=== PATIENT | male | born 1995 | race Caucasian/White ===

== ENCOUNTER 2020-01-12 07:12 | Inpatient (IN) | payer OTHER ==
[~2020-01-12] VITALS: Ht 160 cm; Wt 86.2 kg
[2020-01-12] VITALS (13 sets, daily range): BP systolic 112–153; BP diastolic 56–86
[2020-01-12] MEDS ORDERED: NOHOMEMEDICATIONS (07:38)
[2020-01-12 08:03] LABS: HEMATOCRIT 45.2 % (42.0-52.0); MCH 30.5 pg (26.0-34.0); MCHC 33.2 g/dL (28.0-37.0); MCV 91.7 fL (80.0-100.0); PLATELET COUNT 398 thou/uL (150-400); RBC 4.93 mil/uL (4.50-6.00); WBC 36.1 thou/uL (4.0-11.0)
[2020-01-12 08:14] LABS: CREATININE 0.8 mg/dL (0.7-1.3); POTASSIUM 3.7 mmol/L (3.5-5.1)
[2020-01-12 08:15] LABS: MAGNESIUM 1.8 mg/dL (1.8-2.4)
[2020-01-12 08:54] LABS: ABSOLUTE NEUTROPHILS 31.8 thou/uL (1.4-8.2)
--- NOTE | 2020-01-12 10:01 | EKG ---
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
--- NOTE | 2020-01-12 11:17 | NUR ---
MRI SCREENING SHEET FAXED TO # [id number]
--- NOTE | 2020-01-12 15:03 | 2DMMODE ---
[facility] [place] [address] 2 D/M-MODE ECHOCARDIOGRAM Name: JOSE PRINCE Room #: REG PANTERA VazquezYamila#: [id number] Admission: 01/12/20 Attend Phys: Discharge: Date of : 95 Report #: [id number] THIS REPORT FOR: cc: FAM - No family physician/PCP FAM - No family physician/PCP Darian Rose MD [facility] ~ APPROVED REPORT Study performed: 01/12/2020 14:31:23 EXAM: Limited 2D, Doppler, and color-flow Echocardiogram Patient Location: ER-7 Status: HANANE BSA: 1.81 BP: 126/63 mmHg Rhythm: NSR/TACHYCARDIA Other Information Study Quality: Good/Patient in distress. Not all measurements taken. Indications Epidural abscess. IV drug abuse. Infection, Rule out endocarditis. Aortic Valve AoV Peak Enoc.: 1.96 m/s AO Peak Gr.: 15.31 mmHg Mitral Valve E/A Ratio: 1.3 MV Decel. Time: 90.79 ms MV E Max Enoc.: 1.17 m/s MV A Enoc.: 0.93 m/s MV PHT: 26.33 ms Pulmonary Valve PV Peak Enoc.: 1.68 m/s PV Peak Gr.: 11.26 mmHg Tricuspid Valve TR Peak Enoc.: 3.00 m/s RAP Estimate: 5.00 mmHg TR Peak Gr.: 36.00 mmHg [facility] [address] [place] [address] 2 D/M-MODE ECHOCARDIOGRAM Name: JOSE PRINCE Room #: REG PANTERA Meredith#: [id number] Admission: 01/12/20 Attend Phys: Discharge: Date of : 95 Report #: [id number] Pressure: 41.00 mmHg Left Ventricle The left ventricle is normal size. There is normal LV segmental wall motion. There is normal left ventricular wall thickness. Left ventricular systolic function is normal. LVEF is 60-65%. Right Ventricle The right ventricle is normal size. The right ventricular systolic function is normal. Atria The left atrium size is normal. The right atrium size is normal. Aortic Valve The aortic valve is normal in structure. No aortic regurgitation is present. There is no aortic valvular stenosis. Mitral Valve The mitral valve is normal in structure. There is no mitral valve regurgitation noted. No evidence of mitral valve stenosis. Tricuspid Valve The tricuspid valve is normal in structure. Trace tricuspid regurgitation. Estimated PAP is 40-45mmHg. Pulmonic Valve The pulmonary valve is normal in structure. Trace pulmonic regurgitation. Great Vessels The aortic root is normal in size. IVC is normal in size and collapses >50% with inspiration. Pericardium There is no pericardial effusion. <Conclusion> Left ventricular systolic function is normal. There is normal LV segmental wall motion. LVEF is 60-65%. The aortic valve is normal in structure. No aortic regurgitation or stenosis The mitral valve is normal in structure. No mitral valve regurgitation. [facility] [address] [place] [address] 2 D/M-MODE ECHOCARDIOGRAM Name: JOSE PRINCE [facility] [id number] Admission: 01/12/20 Attend Phys: Discharge: Date of : 95 Report #: [id number] Trace tricuspid regurgitation. Estimated pulmonary artery pressure of 40-45mmHg. There is no pericardial effusion. <ELECTRONICALLY SIGNED> By: Darian Rose MD, FACC 01/12/20 1501 150 00 Darian Rose MD, FACC /INF
[2020-01-12 16:48] LABS: TSH 1.68 uIU/mL (0.358-3.740)
--- NOTE | 2020-01-12 16:50 | NUR ---
THE OR WAS CALLED AND ADVISED THAT THE PT IS A COVID RULE OUT. OR WAS ADVISED THAT THE PT HAS NOT BEEN COVID SWABBED YET. PT WAS TRANSPORTED TO THE OR BY PRE-OP NURSES.
--- NOTE | 2020-01-12 20:30 | NUR ---
ADMIT TO ICU FROM OR POST EVACUATION OF CERICAL EPIDURAL ABSCESS AWAKE AND ALERT. FOLLOWS COMMANDS RIGHT SIDE WEAKER THAN LEFT. LUNGS CLEAR AFEBRILE. NECK DRESSING INTACT WITH PATY DRAING SEROSANGIOUS DRG SINUS TACH. WILL CONT TO MONITOR
--- NOTE | 2020-01-12 21:00 | NUR ---
COVID 19 TEST PERFORMED AND SENT TO LAB.
[2020-01-12 21:26] LABS: URINE BILIRUBIN NEGATIVE (Negative); URINE BLOOD 2+ (Negative); URINE CLARITY TURBID; URINE COLOR YELLOW; URINE GLUCOSE-RANDOM* NEGATIVE (Negative); URINE KETONES NEGATIVE (Negative); URINE LEUKOCYTES-REFLEX NEGATIVE (Negative); URINE NITRITE-REFLEX NEGATIVE (Negative); URINE PROTEIN (DIPSTICK) 1+ (Negative)
[2020-01-12 21:36] LABS: CALCIUM OXALATE 0-3 Few /LPF (None Seen); SQUAMOUS 0-3 Few /LPF (0-3); URINE RBC 3-10 Few /HPF (0-2)
[2020-01-12 21:37] LABS: CASTS None Seen /LPF (None Seen)
[2020-01-12 21:38] LABS: BACTERIA-REFLEX 1-9 Few /HPF (None Seen); URINE WBC-REFLEX None Seen /HPF (0-5)
[2020-01-12 21:41] LABS: CALCIUM 8.3 mg/dL (8.5-10.1); CREATININE 0.7 mg/dL (0.7-1.3)
[2020-01-12 21:46] LABS: POTASSIUM 4.8 mmol/L (3.5-5.1)
[2020-01-13] VITALS (11 sets, daily range): BP systolic 107–133; BP diastolic 49–72
[2020-01-13 02:07] LABS: GLYCOHEMOGLOBIN (HGB A1C) 4.9 % (4.8-5.6)
[2020-01-13 04:36] LABS: CALCIUM 8.3 mg/dL (8.5-10.1); CREATININE 0.8 mg/dL (0.7-1.3); MAGNESIUM 1.9 mg/dL (1.8-2.4); POTASSIUM 4.8 mmol/L (3.5-5.1)
[2020-01-13 05:23] LABS: MCH 30.5 pg (26.0-34.0); MCHC 33.2 g/dL (28.0-37.0); RBC 4.13 mil/uL (4.50-6.00)
[2020-01-13 05:28] LABS: HEMATOCRIT 37.9 % (42.0-52.0); MCV 91.8 fL (80.0-100.0); PLATELET COUNT 394 thou/uL (150-400); RDW 13.9 % (10.5-14.5); WBC 34.5 thou/uL (4.0-11.0)
[2020-01-13 05:33] LABS: HEMOGLOBIN 12.6 gm/dL (14.0-18.0)
--- NOTE | 2020-01-13 06:00 | NUR ---
PT IS TRANSGENDER AND GOES BY THE NAME OF JANINA. REMAINS IN POSSIBLE COVID 19 ISOLATION. WILL CONT TO MONITOR.
--- NOTE | 2020-01-13 06:00 | NUR ---
VSS REMAINS IN SINUS TACH. AWAKE AND ALERT COOPERATIVE.NECK DRESSING INTACT 40 CC DRAINAGE FROM PATY DRAIN. 1500 CC UO THIS SHIFT. AFEBRILE. LUNGS CLEAR. FENTANYL PRN PAIN. S/C FOR MRI. RIGHT SIDE MUCH STRONGER THIS HOUR. Can RAISE up ARMS AND PULL UP LEGS BILAT. WILL CONT TO MONITOR..
[2020-01-13 07:53] LABS: ABSOLUTE NEUTROPHILS 33.1 thou/uL (1.4-8.2); LARGE PLATELETS OCCASIONAL; METAMYELOCYTES 1 %
--- NOTE | 2020-01-13 08:15 | NUR ---
chart review, consult for drug use and lives in hotel. ramirez gave safe net packet to bedside nurse to deliver to pt. ramirez visited with pt who goes by ms kang or jo ann he is transgender male to female. intro to cm, and dcp. she is a & o x 4, pleasant, tearful and able to make her needs know. active listing and support during phone call with jo ann. she reported " lives at [facility] on [address] [place] [facility] [place] [address]. paid 2 weeks at a time and just paid on . have vehicle that used to sleep in but broken down now. before on the streets. lost my job a [employer] in [facility], i was with at my 5mo with job and lost job do to all this. i had relapse. i stopped on my own. i worried about this because i cant care for myself. so might need wheel chair. no hh or rehab of any in the past. education [facility] packet [facility]. no primary md, no insurance. i don't have any friends or family there. have not lived her long. mom is in [facility] # [phone]. thank you all have been so kind"/jo ann. will cont following as needed for dc needs.
[2020-01-13 09:40] LABS: ALBUMIN 2.1 g/dL (3.4-5.0); DIRECT BILIRUBIN < 0.1 mg/dL (<0.1-0.2); SGOT 14 U/L (15-37); SGPT 15 U/L (30-65); TOTAL BILIRUBIN 0.2 mg/dL (<0.1-1.0); TOTAL PROTEIN 6.8 g/dL (6.4-8.2)
--- NOTE | 2020-01-13 18:33 | NUR ---
ASSUMED CARE PT SHIFT CHANGE. ASSESSMENTS CHARTED.MEDS GIVEN PER NOV. PT ALERT AND ORIENTED.VSS. C/O NECK AND LEG PAIN- MANAGED WITH IV PAIN MEDS. O2 SATS WNL ON 1L O2, TITRATED TO ROOM AIR. COVID TEST NEGATIVE- RESULTS COMMUNICATED TO PHYSICIAN-- NO NEW ORDERS. PT DENIES COUGH/SOB. O2 SATS REMAIN WNL. PT WENT FOR MRI THIS SHIFT--REFER TO RESULTS. PT UP X2 ASSIST. PATY DRAIN REMAINS INTACT. ORIGINAL DRESSING ON BACK OF NECK DRY AND INTACT WITH DRIED DRAINAGE. SEROSANGUINOUS OUTPUT EMPTIED AND DOCUMENTED. URINE OUTPUT ADEQUATE. PT SEEN BY NEUROSURGEON THIS SHIFT- REFER TO PHYSICIAN NOTE. PT CONTINUES TO REMAIN MORE WEAK ON RIGHT SIDE THAN LEFT, NEUROSURGEON NOTIFIED, NO ORDERS/CHANGES RECEIVED. PT EMOTIONAL AND TEARFUL AT TIMES, THERAPEUTIC COMMUNICATION AND REASSURANCE ENFORCED. PT CURRENTLY RESTING IN BED DENYING OF NEEDS. WILL CONTINUE TO MONITOR AND FOLLOW POC.
[2020-01-14] VITALS (24 sets, daily range): BP systolic 115–146; BP diastolic 55–106
[2020-01-14 04:10] LABS: HEMATOCRIT 38.1 % (42.0-52.0); HEMOGLOBIN 12.7 gm/dL (14.0-18.0); MCH 30.6 pg (26.0-34.0); MCHC 33.3 g/dL (28.0-37.0); PLATELET COUNT 381 thou/uL (150-400); RBC 4.14 mil/uL (4.50-6.00); RDW 14.1 % (10.5-14.5)
[2020-01-14 04:13] LABS: CALCIUM 8.3 mg/dL (8.5-10.1); CREATININE 0.6 mg/dL (0.7-1.3); POTASSIUM 5.1 mmol/L (3.5-5.1)
[2020-01-14 04:59] LABS: ABSOLUTE NEUTROPHILS 22.8 thou/uL (1.4-8.2); MYELOCYTES 2 %
--- NOTE | 2020-01-14 10:45 | NUR ---
PT ALERT AND ORIENTED TIMES FOUR. PT VERY VERY TEARFUL THIS MORNING. STATES HE IS IN ALOT OF PAIN. FENTANYL GIVEN WITH LITTLE RELEIF. ON UNIT AND ORDERED DILAUDID, LIDOCAINE PATCH AND ATIVAN. ALL MEDS GIVEN WITH GOOD RELEIF PT NOW SLEEPING. VSS. PT DENIES SOAMYAH TO DD. PATY DRAIN TO BULB SUCTION. WILL CONTINUE TO MONITOR.
[2020-01-15] VITALS (22 sets, daily range): BP systolic 118–161; BP diastolic 70–98
[2020-01-15 06:42] LABS: HEMATOCRIT 39.7 % (42.0-52.0); HEMOGLOBIN 13.3 gm/dL (14.0-18.0); MCH 30.7 pg (26.0-34.0); MCHC 33.5 g/dL (28.0-37.0); MCV 91.5 fL (80.0-100.0); PLATELET COUNT 362 thou/uL (150-400); RBC 4.33 mil/uL (4.50-6.00); RDW 13.9 % (10.5-14.5); WBC 24.1 thou/uL (4.0-11.0)
--- NOTE | 2020-01-15 07:11 | NUR ---
Assumed patient care at 1900. Patient very tearful from neck and mid back pain. Patient medicated with PRN pain meds appropriately and patient got some pain relief and rested for a few hours. No acute events occurred during this shift. Patient remained tachycardic throughout this shift.
[2020-01-15 08:39] LABS: CALCIUM 8.8 mg/dL (8.5-10.1); CREATININE 0.6 mg/dL (0.7-1.3); POTASSIUM 4.4 mmol/L (3.5-5.1); TOTAL BILIRUBIN 0.4 mg/dL (<0.1-1.0); TOTAL PROTEIN 6.9 g/dL (6.4-8.2)
[2020-01-15 10:09] LABS: ABSOLUTE NEUTROPHILS 18.8 thou/uL (1.4-8.2)
[2020-01-15 10:11] LABS: TOXIC GRANULATION 2+
--- NOTE | 2020-01-15 14:46 | NUR ---
ASSUMED CARE FOR PT AT 0700. ASSESSMENTS DOCUMENTED. DRESSING ON NECK C/D/I. PT AFEBRILE. NO COMPLAINTS OF SOA/N/V/D. PT REMAINS TEARFUL THROUGHOUT DAY. SLEEPS ON AND OFF. CONTINUES TO BE TACHYCARDIC/TACHYPNEIC. DIMINISHED APPETITE. PT UP TO CHAIR FROM 0730 TO 1445. PT VERY WEAK, NEEDS PT EVAL. PATY TO BULB SUCTION WITH MINIMAL OUTPUT. NEUROLOGICALLY INTACT. PROGRESSING TOWARDS POC EVIDANCE BY NO NEURO DEFICITS. WILL CONTINUE TO MONITOR.
[2020-01-16] VITALS (12 sets, daily range): BP systolic 115–145; BP diastolic 52–83
--- NOTE | 2020-01-16 05:37 | NUR ---
Assumed patient care at 1900. Patient doing much better today than yesterday with only complaints of stiffness vs. complaints of pain yesterday. Patient remained stable throughout this shift and no acute events occurred.
[2020-01-16 06:22] LABS: HEMATOCRIT 45.1 % (42.0-52.0); HEMOGLOBIN 15.1 gm/dL (14.0-18.0); MCH 30.7 pg (26.0-34.0); MCHC 33.5 g/dL (28.0-37.0); MCV 91.5 fL (80.0-100.0); PLATELET COUNT 395 thou/uL (150-400); RBC 4.93 mil/uL (4.50-6.00); RDW 13.7 % (10.5-14.5); WBC 21.5 thou/uL (4.0-11.0)
--- NOTE | 2020-01-16 08:37 | EKG ---
[facility] [place] [address] ELECTROCARDIOGRAM REPORT Name: JOSE PRINCE Room #: 246-P ADM IN M.R.#: [id number] Admission: 01/12/20 Attend Phys: Alejandra Brannon MD Discharge: Date of : 95 Report #: [id number] THIS REPORT FOR: cc: TIMMY - Jennifer family physician/PCP TIMMY - No family physician/PCP Darian Rose MD [facility] THIS REPORT FOR: //name// [facility] Test Date: 2020-01-15 Test Time: 15:44:58 Pat Name: JOSE PRINCE Department: Room: [facility] Gender: M Data Integrity Specialist: Shahrzad GABRIEL : 1995 Requested By: Isiah Hurd Order Number: [id number] MD: Darian Rose Measurements Intervals [place] Rate: 108 P: 69 W[place]: 128 QRS: 42 QRSD: 100 T: -5 QT: 313 QTc: 420 Interpretive Statements Sinus tachycardia ST elev, probable normal early repol pattern Baseline wander in lead(s) V1 Compared to ECG 01/12/2020 08:04:37 No significant change was found Electronically Signed On 01-16-2020 8:35:32 CDT by Darian Rose [email or web address] <ELECTRONICALLY SIGNED> By: Darian Rose MD, FAC 01/16/20 0835 1544 1544 Darian Rose MD, FAC /EPI
[2020-01-16 08:44] LABS: ABSOLUTE NEUTROPHILS 17.4 thou/uL (1.4-8.2); METAMYELOCYTES 1 %; MYELOCYTES 1 %
[2020-01-16 08:45] LABS: ANISOCYTOSIS SLIGHT
[2020-01-16 11:27] LABS: CREATININE 0.9 mg/dL (0.7-1.3); POTASSIUM 4.5 mmol/L (3.5-5.1)
--- NOTE | 2020-01-16 13:25 | NUR ---
ASSUMED CARE FOR PT AT 0700, ASSESSMENTS DOCUMENTED. TRANSFER ORDERS TO MED/SURG/TELE. PHYSICAL THERAPY EVALUATED AND TREATED PT TODAY. UP TO CHAIR. CONTINUES TO HAVE A DIMINISHED APPETITE. ADEQUATE URINE OUTPUT. EMOTIONALLY LABILE. LOWER RIGHT EXTREMITY WEAKNESS. PATY TO BULB SUCTION, MINIMAL OUTPUT. BANDAGE ON POSTERIOR NECK IS C/D/I. PT COMPLAINS OF NECK AND GENERAL BACK PAIN, ANALGESICS AND NON-PHARMACOLOGIC METHEDS USED.PT PROGRESSING TOWARDS PLAN OF CARE EVIDANCE BY ORDERS TO TRANSFER TO [facility]. PT UPDATED AND EDUCATED. WILL CONTINUE TO MONITOR.
--- NOTE | 2020-01-16 15:53 | NUR ---
DARA reviewed chart and spoke with attending physician. Pt with multiple spinal abscesses and continues on IV abx. Neuro surgery is following. Pt may need termite treater helper IV abx. Pt does not currently have insurance. DARA requested [employer] to follow up with pt to determine if pt would be a candidate for Medicaid. DARA is following to assist as needed with discharge planning.
--- NOTE | 2020-01-17 06:00 | NUR ---
PT AWAKE AND ALERT. SLEPT AT INTERVALS TONIGHT. PAIN MEDS PRN FOR NECK INCISION. 2000 CC UO THIS SHIFT. SR TO ST PER MONITOR. LUNGS CLEAR. NECK DRESSING INTACT. 5 CC DRAINAGE FROM PATY DRAIN. S/C FOR MRI TODAY. WILL CONT TO MONITOR.
[2020-01-17 09:29] VITALS: BP 132/67
--- NOTE | 2020-01-17 11:20 | NUR ---
Nutrition: REC daily MVI to be ordered for pt. Assisted with increasing oral intake however pt refusing all supplements.
[2020-01-17 13:21] VITALS: BP 122/73
--- NOTE | 2020-01-17 13:35 | O ---
[facility] [place] [address] OPERATIVE REPORT Name: JOSE PRINCE Room #: 246-P ADM IN M.R.#: [id number] Admission: 01/12/20 Attend Phys: Alejandra Brannon MD Discharge: Date of : 95 Report #: [id number] THIS REPORT FOR: cc: ITMMY - No family physician/PCP TIMMY - Jennifer family physician/PCP Chester Lozano MD ~ CC: Alejandra Fisher [facility] physician/PCP Chester Bynum DATE OF SERVICE: 01/12/2020 PREOPERATIVE DIAGNOSIS: Cervical epidural abscess C2 through C7. POSTOPERATIVE DIAGNOSIS: Cervical epidural abscess C2 through C7. OPERATION PERFORMED: C2-C3 left hemilaminectomy with evacuation of epidural abscess and placement of drain. SURGEON: Chester Lozano M.D. INTERNAL CONTROL CONSULTANT: SYDNIE Reyes, assisted with the exposure of the laminectomy with removal of the abscess and closure. OPERATIVE INDICATIONS: The patient is a pleasant 24-year-old, who presented to the Emergency Room with complaints of upper back and neck pain. The patient reports that he had been in the Emergency Room twice earlier in the week at [facility] with severe pain and nothing was done. He said that he has become much worse over the last 24 hours and feels short of breath. He denied fever or weakness. The patient was evaluated and underwent an MRI scan. After that time, the patient felt he was losing control of upper and lower extremities. When I saw the patient, he had global weakness with 4/5 strength in the upper extremities and 2-3/5 strength in lower extremities. On imaging studies, there was a large epidural abscess anterior to the cord at C2 and C3 and much smaller abscess which continued down the spine to about C7 and I recommended emergent evacuation of the abscess. I did review these films with Dr. Kemar Armenta, the chief neuro surgeon at [facility]. After we discussed this case at length, I elected to perform a left sided laminectomy of C2 and C3 and then go anterior to the cord and evacuate the abscess. DESCRIPTION OF PROCEDURE: The patient was taken emergently into the operating [facility] [address] [place] [address] OPERATIVE REPORT Name: SURESHJOSE Room #: 246-P [facility] IN .R.#: [id number] Admission: 01/12/20 Attend Phys: Alejandra rBannon MD Discharge: Date of : 95 Report #: [id number] room and positioned prone in Leach pins. The posterior cervical region was then clipped, prepped and draped in standard fashion. TAMMY hose and AV impulse boots were applied for DVT prophylaxis. Microscope was draped. Fluoroscopy was draped into the field. Monitoring was established. The patient had been given antibiotics. A midline posterior incision was made and taken down to skin and subcutaneous tissue. I exposed the left side of C2 and C3. I confirmed my position fluoroscopically. I brought in the microscope and the self-retaining retractors. I drilled a generous hemilaminotomy of C2 and C3 and then used 2 mm Kerrisons to enlarge it laterally and medially and visualized the dura. There were considerable veins over the dura which I gently freed and worked around laterally. I could visualize the nerve root takeoff clearly. As I worked, I was able to obtain an excellent exposure. I passed a blunt hook beneath the dura at C2 and C3 and worked. At this point, I did not find an epidural abscess. I did retract gently. I found some organized abscess material which I took and continued exploring. I found that the upper part C2 was pulsating nicely, but the dura at C3 was not. I took a [place] dental gently and explored anteriorly at C2 and then C3 and as I reached anterior across the midline and inferiorly at C3, I suddenly encountered significant amounts of whitish purulent material. Cultures and Gram stain were obtained. I worked and I was able to obtain a significant amount of pus removal of the dura and relaxed nicely. I irrigated copiously and placed a small drain, which I brought out through a separate stab incision and secured this and then I closed the wound in layers with absorbable suture and the skin was closed with skin kitty. The operation went well and the patient was transported back to the Intensive Care Unit under appropriate precautions and I felt the surgery went very well. <ELECTRONICALLY SIGNED> By: Chester Lozano MD 01/17/20 1335 Chester Lozano MD /nt
--- NOTE | 2020-01-17 14:45 | NUR ---
DARA reviewed chart and spoke with attending physician. Pt to have MRI of lumbar spine today. 5N consult ordered to evaluate pt for admission to inpt acute rehab. Pt does not currently have health insurance. [employer] is working with pt. DARA left voice message for pt on her cell phone ([phone]) to discuss post-acute plans. Pt may transfer out of ICU pending bed availability. DARA is following to assist as needed with discharge planning.
[2020-01-17 16:35] VITALS: BP 136/62
--- NOTE | 2020-01-17 18:21 | NUR ---
Received pt from the ICU, FC intact and draining l;ight yellow urine. Heating pas placed on the shoulders. Pain is verbalized from the neck and the shoulders. Pt is depressed and has expressed her plan for killing herself, this has been a long standing plan that has been put on hold due to the medical issues pt stated " i wanted my work myself to and have more than enough money to leave behind for my little girls and mom they are all I have. Pain is managed with medication, partial relief is notes, PATY drain on the nape of the neck draining very minimal amount of serosangiunous fluid. Informed charge nurse and house sup of the suicidal ideations and verbalizations of the pt. Pt has made it clear that she wishes to be and had nothing worth living for. Sent a Krypto text to the MD awating for next steps. charge nurse aware.
[2020-01-17 19:10] VITALS: BP 124/60
[2020-01-18 01:00] VITALS: BP 125/71
[2020-01-18 03:49] VITALS: BP 117/60
--- NOTE | 2020-01-18 05:03 | NUR ---
ASSESSMENTS CHARTED, MEDS GIVEN CHARTED. PATIENT RESTING IN BED DURING SHIFT. C/O PAIN TO NECK AND SPINE AREA. SINUS TACH, SINUS RHYTHM ON TELEMETRY. GLASGOW IN PLACE KPAD IN USE DURING SHIFT. UP WITH ASSIST OF 2. RIGHT SIDE WEAKER THAN LEFT. PATY DRAIN IN PLACE IN NECK. C/O PAIN 06/07 - 04/06 DURING SHIFT. PATIENT WOULD LIKE A SHOWER TODAY. FALL PRECAUTIONS IN PLACE DURING SHIFT.
[2020-01-18 05:11] LABS: HEMATOCRIT 39.2 % (42.0-52.0); MCH 30.5 pg (26.0-34.0); MCHC 33.2 g/dL (28.0-37.0); MCV 91.6 fL (80.0-100.0); PLATELET COUNT 387 thou/uL (150-400); RBC 4.28 mil/uL (4.50-6.00); RDW 13.9 % (10.5-14.5); WBC 18.3 thou/uL (4.0-11.0)
[2020-01-18 05:38] LABS: CALCIUM 8.4 mg/dL (8.5-10.1); CREATININE 0.7 mg/dL (0.7-1.3); POTASSIUM 4.7 mmol/L (3.5-5.1)
[2020-01-18 07:20] LABS: ABSOLUTE NEUTROPHILS 13.4 thou/uL (1.4-8.2); ATYPICAL LYMPHS 1 %; METAMYELOCYTES 3 %; MYELOCYTES 1 %
[2020-01-18 07:21] LABS: ANISOCYTOSIS SLIGHT
[2020-01-18 07:50] VITALS: BP 132/78
--- NOTE | 2020-01-18 11:30 | NUR ---
Spoke with nursing patient with new SI awaiting psych eval has a sitter. [employer] following. Patient has no health insurance.
--- NOTE | 2020-01-18 16:44 | NUR ---
ASSUMED CARE OF PT AT SHIFT CHANGE. ASSESSMENT CHARTED. MEDS GIVEN PER NOV. PT A&OX4. C/O PAIN, 04/06-06/07, IN NECK TREATED WITH IV AND PO MEDS WITH PARTIAL RELIEF. GLASGOW IN PLACE. PATY DRAIN IN PLACE AT NECK. SITTER AT BEDSIDE D/T SUICIDE WATCH. DR. SAMPSON SAID 1:1 CAN BE DC'D, STILL WAITING FOR ORDER. WILL CONTINUE TO MONITOR AND FOLLOW POC.
[2020-01-18 19:30] VITALS: BP 133/70
[2020-01-19 03:55] VITALS: BP 124/63
[2020-01-19 05:31] LABS: HEMATOCRIT 40.1 % (42.0-52.0); HEMOGLOBIN 13.4 gm/dL (14.0-18.0); MCH 30.6 pg (26.0-34.0); MCHC 33.3 g/dL (28.0-37.0); MCV 91.9 fL (80.0-100.0); RBC 4.36 mil/uL (4.50-6.00); RDW 13.8 % (10.5-14.5)
--- NOTE | 2020-01-19 05:37 | NUR ---
PATIENTS CARES WERE ASSUMED AT SHIFT CHANGE.PATIENT WAS ASSESSED AND MEDS WERE PASSED. ORDERS WERE CHECKED. THIS PATIENT IS A MED /SURG PATIENT. PATIENT IS ON THE DOT FOR PAIN MEDS APPROX Q3 HOURS. PATIENT STAYS AT A 7/10 NO MATTER WHAT I DO.HOURLY ROUNDS WERE MADE AND THE BED IS IN A LOW AND LOCKED POSITION.
[2020-01-19 05:39] LABS: ALBUMIN 1.9 g/dL (3.4-5.0); CALCIUM 8.2 mg/dL (8.5-10.1); CREATININE 0.7 mg/dL (0.7-1.3); PHOSPHORUS 4.3 mg/dL (2.5-4.9); POTASSIUM 4.6 mmol/L (3.5-5.1)
[2020-01-19 11:30] VITALS: BP 136/67
--- NOTE | 2020-01-19 14:43 | NUR ---
Message left for Citlaly at [facility] to see if she has made contact with the pt regarding her medicaid and disability application. Pt having DEV today and will need additional surgery for lumbar abcess next week. Neck drain in place and pt on iv atb. Possible ltac or rehab referrals pending her level of care needs and progress. Pain control has been a struggle. PT/OT are working with pt. Psych following along for depression. No dc anticipated over the weekend. Will follow.
--- NOTE | 2020-01-19 18:04 | NUR ---
ASSUMED CARE 0700. ALERT X4, PAIN AND AXIETY MANAGED WITH MEDICATIONS. BECOMES TEARFULL IF PT IS REFERED TO HE AND AVOIDING USING THE SHE PRONOUN. MINUMAL PARTICIPATION WITH THERAPY. ONLY 2CC FROM PATY DRAIN THAT IN INTACT. PT HAS POUR NUTRITIONAL INTAKE AND PREFERES CEREAL AND MILK. DENIES SOB. SITTER FOR SI REMOVED AT 10AM AFTER DR SAMPSON ROUNDED. COMPLAINT WITH CARES. VOICED SHE "JUST WANT TO SLEEP."- GLASGOW PATENT WITH 1000CC OUTPUT. PERSONAL ITEMS AND CALL LIGHT IN REACH.
[2020-01-19 20:51] VITALS: BP 134/66
[2020-01-20 04:08] VITALS: BP 109/62
[2020-01-20 04:11] VITALS: BP 124/66
--- NOTE | 2020-01-20 04:44 | NUR ---
assumed pt care at 1900, pt is alert and orientedx4, makes needs kniown, pt complained of pain, medicated prn, not on the monitor as per order, assessments as charted, frankie drain site intact with dry drainage, no bm tonight, no distress noted, will continue to monitor
[2020-01-20 08:55] VITALS: BP 128/62
--- NOTE | 2020-01-20 10:03 | TEE ---
[facility] [place] [address] TRANSESOPHAGEAL ECHOCARDIOGRAM Name: JOSE PRINCE Room #: 207-P ADM IN M.R.#: [id number] Admission: 01/12/20 Attend Phys: Alejandra Brannon MD Discharge: Date of : 95 Report #: [id number] THIS REPORT FOR: cc: FAM - No family physician/PCP FAM - No family physician/PCP Darian Rose MD [facility] ~ APPROVED REPORT Study performed: 01/20/2020 07:26:53 EXAM: Transesophageal Echocardiogram Patient Location: Out-Patient Room #: [facility] Status: routine BSA: 1.89 HR: 93 bpm BP: 119/66 mmHg Rhythm: NSR Other Information Study Quality: Good Indications MRSA, Rule out endocarditis. Echo Enhancing Agent Indication: Rule out Shunt Agent(s) / Amount(s) Used: Agitated Saline 7 cc Procedure After obtaining informed consent, patient underwent transesophageal echo in the [employer]. Type of Sedation : Conscious Sedation Sedation was administered by JOSIE Lopez. Sedation was achieved intravenously with: Versed (3) Fentanyl (100) Transesophageal probe was inserted and advanced into esophagus without difficulty by Darian Rose MD. The DEV was performed without complications. Throughout the procedure, the blood pressure, pulse oximetry, cardiac rhythm, and rate were monitored. The patient tolerated the procedure without adverse effects. Recovery from conscious sedation was uneventful and vital signs were stable. [facility] [address] [place] [address] TRANSESOPHAGEAL ECHOCARDIOGRAM Name: JOSE PRINCE Room #: 207-P ADM IN M.R.#: [id number] Admission: 01/12/20 Attend Phys: Shahrzad Hatfield Discharge: Date of : 95 Report #: [id number] Left Ventricle The left ventricle is normal size. There is normal LV segmental wall motion. There is normal left ventricular wall thickness. Left ventricular systolic function is normal. LVEF is 55-60%. Right Ventricle The right ventricle is normal size. The right ventricular systolic function is normal. Atria The left atrium size is normal. No thrombus is visualized in the left atrium or appendage. No shunting by contrast bubble injection. The right atrium size is normal. Aortic Valve The aortic valve is normal in structure. No aortic regurgitation is present. There is no aortic valvular stenosis. Mitral Valve The mitral valve is normal in structure. There is no mitral valve regurgitation noted. No evidence of mitral valve stenosis. Tricuspid Valve The tricuspid valve is normal in structure. Trace tricuspid regurgitation. Pulmonic Valve The pulmonary valve is normal in structure. Trace pulmonic regurgitation. Great Vessels The aortic root is normal in size. The ascending aorta is normal in size. IVC is normal in size and collapses >50% with inspiration. Pericardium There is no pericardial effusion. <Conclusion> 1. Normal DEV with Doppler 2. No pericardial effusion <ELECTRONICALLY SIGNED> By: Darian Rose MD, FAC 01/20/20 1001 00 100 Darian Rose MD, FAC /INF
[2020-01-20 11:19] VITALS: BP 145/82
[2020-01-20 16:43] VITALS: BP 118/77
--- NOTE | 2020-01-20 16:58 | NUR ---
ASSUMED CARE 0700. ALERT X4, COMPLIANT WITH CARES, FLAT AFFECT, PSYCH FOLLOWING FOR DEPRESSION, PAIN AND ANXIETY TREATED WITH PRN MEDICATIONS. DEV COMPLETED TODAY. GELACIO DRAIN C SCANT DRAINAGE. ORDERS TO DC GLASGOW. PT DECLINED GLASGOW UNTIL PT HAS A BM. SMEAR OF BM TODAY. NO PLANS TO DC OVER THE WEEKEND. DR JURADO RELAYED TO PRIMARY NURSE PT WILL HAVE BACK RE-SCANNED ON THURSDAY WITH POSSIBLE SURGERY NEXT WEEK. PT REPORTS LIVING AT [facility] THAT IS PAYED THROUGH 01/24 AND VOICED CONCERNS OF HOW PERSONAL ITEMS WILL BE RETRIEVED. PT COMPLAINED OF TWITCHING IN RIGHT LEG. PT COMPLAINED HIS ARMS FEEL HEAVY. STAFF ASSISTED WITH MORNING MEAL AND ENCOURAGED INDEPENDENT EATING. PERSONAL ITEM IN REACH. CALLS FOR ASSSISTANCE.
[2020-01-20 20:28] VITALS: BP 117/63
--- NOTE | 2020-01-21 04:26 | NUR ---
ASSUMED PATIENT CARE AT 1845. VITAL SIGNS STABLE WITH PATIENT HAVING NO COMPLAINTS OF PAIN OR NAUSEA. FULLY ORIENTED, PATIENT IS ABLE TO CALL FOR NEEDS. PATIENT IS HIGHLY ANXIOUS AND CRIED TWICE DURING SHIFT. NO PROBLEMS BREATHING ON ROOM AIR. PATIENT WAS UNABLE TO VOID POST CATHETER REMOVAL AND A BLADDER SCAN INDICATED PATIENT WELL OVER 600 CC'S. ORDER RECEIVED FOR STRAIGHT CATH TO GOOD EFFECT. PATIENT WAS ABLE TO AMBULATE TO THE BEDSIDE COMMODE MULTIPLE TIMES WITH ASSISTANCE INCIDENT FREE, HE IS CONSIDERED A HIGH FALL RISK. CONTINUE PLAN OF CARE.
[2020-01-21 04:45] VITALS: BP 128/57
[2020-01-21 08:00] VITALS: BP 121/75
--- NOTE | 2020-01-21 16:30 | NUR ---
ASSUMED CARE 0700. PT ALERT X4, TREATING PAIN AND ANXIETY WITH MEDICATIONS. EMOTIONAL MOOD IMPROVING. BLADDER SCAN SHOWED 699 PATIENT ONLY ABLE TO URINATE [address] GLASGOW CATHETER, ER NURSE ABLE TO INSERT GLASGOW CATHETER. PT'S FRIENDS BROUGHT PT'S CONTACT LENSES AND [employer] CARD AND [employer] [place] [employer]. PT ABLE TO MOVE RIGHT LEG MORE TODAY. PERSONAL ITEMS AND CALL LIGHT IN REACH. CONTINUE TO MONITOR
[2020-01-21 20:05] VITALS: BP 121/56
--- NOTE | 2020-01-22 03:40 | NUR ---
SLEPT PART OF SHIFT. REQUIRES PAIN MEDS AND MUSCLE RELAXENT NEEDED FOR SHOULDER AND UPPER NECK PAIN. WORKING ON GOALS AND PLAN OF CARE FOR NOC. ASSIST TO TURN FOR COMFORT AND SKIN CARE PER REQUEST. NOT PROGRESSING TOWARDS DISCHARGE GOALS AT THIS TIME. CONTINUE TO ASSES CLOSELY.
[2020-01-22 04:45] VITALS: BP 126/63
[2020-01-22 12:00] VITALS: BP 134/76
--- NOTE | 2020-01-22 15:04 | NUR ---
PT CARE ASSUMED AT 1200. A&Ox4. PT RESTING IN BED. HAIR WAS WASHED AND COMBED, SHAVED. THE MISSING H[employer] [place] [employer] AND [employer] VISA CARD WERE FOUND ON THE PT NIGHTSTAND IN AN ENVELOPE. PT VERIFIED AND PT RETURNED THESE INTO HER VITAL. VITALS ARE STABLE. PATY DRAIN IS TO BE DC TOMORROW. MRI TOMORROW. GLASGOW PRESENT FOR RETENTION. WEAKNESS BILATER UPPER EXTREMITY, AND L. LEG. PT SAT AT THE EDGE OF THE BED FOR ABOUT 5 MIN. PAIN IS NOT MANAGED WELL WITH THE CURRENT PAIN MEDICATION ON BOARD. HYDROXICINE AND ATAVAN PRN FOR ANXIETY. IV IS PATENT WITH NO REDNESS OR EDEMA. SALINE LOCKED. FALL PROTOCOL IN PLACE. WILL CONTINUE TO MONITOR.
[2020-01-22 16:13] VITALS: BP 124/57
--- NOTE | 2020-01-22 16:44 | NUR ---
Assumed patient care at 0715. Patient's anxiety increased this am when she discovered that her "money card and ya" were missing. This nurse notified Security and left a message for Krystal, Electric Detector Operator regarding this. Patient and her mother would like for patient to try Propranolol for her anxiety, as she is wanting to avoid Narcotics/Benzo's. Patient requested and received Hydrocodone 5/325mg two tabs for upper back pain of level six and Lorazepam 1mg po for anxiety at 0915. Medication was helpful. Patient would like to work with Physical Therapy to try to increase strength and range of motion in her right hand/arm; also would like to increase the same in right leg/foot. Report given to JOSIE Joyce.
[2020-01-22 16:51] LABS: ABSOLUTE NEUTROPHILS 5.4 thou/uL (1.4-8.2); BASOPHILS 1.5 % (0.0-2.0); EOSINOPHILS 0.7 % (0.0-3.0); HEMATOCRIT 37.4 % (42.0-52.0); HEMOGLOBIN 12.6 gm/dL (14.0-18.0); LYMPHOCYTES 28.8 % (24.0-44.0); MCHC 33.7 g/dL (28.0-37.0); MONOCYTES 8.4 % (1.0-8.0); PLATELET COUNT 476 thou/uL (150-400); POLYS 60.6 % (36.0-66.0); RBC 4.07 mil/uL (4.50-6.00); RDW 13.7 % (10.5-14.5); WBC 8.8 thou/uL (4.0-11.0)
[2020-01-22 17:05] LABS: ALBUMIN 1.9 g/dL (3.4-5.0); CALCIUM 8.3 mg/dL (8.5-10.1); CREATININE 0.8 mg/dL (0.7-1.3); MAGNESIUM 1.7 mg/dL (1.8-2.4); PHOSPHORUS 4.6 mg/dL (2.5-4.9); POTASSIUM 4.6 mmol/L (3.5-5.1); TOTAL BILIRUBIN 0.3 mg/dL (<0.1-1.0); TOTAL PROTEIN 7.2 g/dL (6.4-8.2)
[2020-01-22 19:30] VITALS: BP 134/53
[2020-01-23 04:30] VITALS: BP 118/42
--- NOTE | 2020-01-23 05:30 | NUR ---
PATIENT A/O X 4.PAIN WELL CONTROLLED.MED SURG STATUS.TRANSFERED TO THIS MORNING.REPORT GIVEN TO DC.POC CONTINUED.
[2020-01-23 06:31] LABS: CALCIUM 8.5 mg/dL (8.5-10.1); CREATININE 0.7 mg/dL (0.7-1.3); MAGNESIUM 1.9 mg/dL (1.8-2.4); POTASSIUM 4.2 mmol/L (3.5-5.1)
--- NOTE | 2020-01-23 07:40 | NUR ---
PT TO 4S AROUND 0630. PT MADE COMFORTABLE IN BED AND REPORT WAS PASSED TO THE DAY NURSE, JOE.
[2020-01-23 08:09] VITALS: BP 127/55
--- NOTE | 2020-01-23 15:08 | NUR ---
CARE TEAM INDICATED THAT PT HAD DRAIN REMOVED AND DRESSING CHANGED THIS DAY. PT HAD MRI. PT WORKED WITH PT AND OT. [facility] TO FOLLOW UP WITH PT REGARDING MEDICAID APPLICATION. [facility] AND [facility] FOLLOWING. CM TO FOLLOW INDICATED WITH DC PLANNING.
[2020-01-23 16:20] VITALS: BP 115/49
--- NOTE | 2020-01-23 18:43 | NUR ---
VSS-AFEBRILE. LUNGS CLEAR-ROOM AIR. C/O SIGNIFICANT ANXIETY TODAY, PARTIAL RELIEF NOTED WITH PRESCRIBED PO PAIN MEDICATIONS. PATY DRAAIN REMOVED, AND DRESSING CHANGED BY SURGERY, NO NEW ORDERS REGARDING INCISION. DRESSING REMAINS DRY AND INTACT. OOB WITH PT/OT, AND USE OF WALKER AND 1 ASSIST. FALL PRECAUTIONS IN PLACE, CALLS APPROPRIATELY FOR ANY NEEDED ASSISTANCE.
[2020-01-23 19:15] VITALS: BP 113/51
--- NOTE | 2020-01-24 03:17 | NUR ---
PATIENT TEARFUL THIS SHIFT. PATIENT HAD HIGH ANXIETY THIS SHIFT. PATIENT HAS A FLAT AFFECT, POOR EYE CONTACT, FAIR GROOMING AND HYGIENE.PAIN CONTROLLED THIS SHIFT.PATIENT NEEDS MINIMUM ASSISTANCE WITH ADL, BED MOBILITY, TRANSFER AND TOILETING. PATIENT ENCOURAGED TO DO ADLS.PATIENT ASLEEP AT THIS TIME BREATHING REGULAR AND UNLABOURED.
[2020-01-24 03:58] VITALS: BP 124/65
[2020-01-24 07:29] VITALS: BP 127/55
--- NOTE | 2020-01-24 13:49 | NUR ---
Received consult due to pt being homeless. DARA reviewed chart and spoke with nursing, attending physician and ID. Awaiting input from [facility] regarding status of [place]-Medicaid application. Per chart, [facility] and [facility] are following pt for possible admission. Pt will need superintendent terminal IV abx. SW spoke with pt via phone. Pt states that she is currently living in a hotel: [facility] in [place]. She states that she pays two weeks at a time to stay in the hotel. Her current two-week stay expires tomorrow. Pt is concerned about her personal belongings. Pt does not have any family or friends who are able to machine pecan picker her stuff. Pt states that her work uniform is there, and she needs to return the uniform in order to machine pecan picker her last pay check. Pt asking for a pass to leave the hospital and return. SW to discuss with Director of Case Mgmt. DARA also discussed post-acute plans with pt for placement in an LTAC or acute rehab for superintendent terminal IV abx. Pt states she is unaware of the plan at this time. DARA is following to assist as needed with discharge planning.
[2020-01-24 14:53] VITALS: BP 131/37
[2020-01-24 14:54] VITALS: BP 126/43
--- NOTE | 2020-01-24 15:40 | NUR ---
ASSUMED CARE AT 0700. PT ALERT AND ORIENTED. VSSA. RA. GLASGOW IN PLACE. BM YESTERDAY. TOLERATING DIET. C/O PIV BEING PAINFUL D/T VANCO INFUSION, HOWEVER NO SIGNS OF SWELLING OR REDNESS AT THIS TIME. DRESSING ON UPPER BACK C/D/I. PT/OT WORKING WITH PT. WILL MONITOR TOOK GLASGOW OUT AT 1100. NO COMPLICATIONS. INSTRUCTED PT ON NEED TO PEE BY 6 HOUR DAYSI AND WILL MONITOR
[2020-01-24 19:10] VITALS: BP 138/86
--- NOTE | 2020-01-25 04:33 | NUR ---
PATIENT AOX4 CALM AND COOPERATIVE. PATIENT AMBULATED IN THE UNIT WITH STEADY GAIT. PATIENT DRESSING ON THE BACK OF THE NECK IS C/D/I. PATIENT ENCOURAGED TO PUSH FLUIDS. PAIN CONTROLLED THIS SHIFT. PATIENT IN BED ASLEEP AT THIS TIME BREATHING REGULAR AND UNLABOURED.
[2020-01-25 04:55] VITALS: BP 110/59
[2020-01-25 07:08] VITALS: BP 115/55
--- NOTE | 2020-01-25 09:21 | NUR ---
DARA arranged saw cleaner service with [employer] to order picker/assembler pt[facility] belongings [facility]: [address], [place], [place] [address]. Personal belongings to be at the hotel commercial front load driver. [employer] to bring pt's belongings to ER entrance. Tracking # [id number]. DARA spoke with pt via phone to provide update. Pt's friend/bacteriology professor at the hotel will pack up personal belongings and take to the commercial front load driver. DARA notified [facility] public safety. DARA is following to assist as needed with discharge planning.
--- NOTE | 2020-01-25 14:32 | NUR ---
CM NOTIFIED BY HOUSE SUP THAT PT'S BELONGINGS WERE DELIVERED TO ER AND THAT THERE WERE MORE THAN PT HAD CONVEYED. PT WAS BROUGHT DOWN AND GOT SOME THINGS THE REMAINDER WERE LEFT IN SECURITY AND LOGGED. MUNIR SPOKE WITH PT THIS AFTERNOON AND SHE IS AWARE THAT [facility] IS FOLLOWING FOR POSSIBLE ADMISSION FOR CONTINUED IV ABX TREATMENT AND REHAB SERVICES. MUNIR ALSO SPOKE WITH PT ABOUT [facility] A BACK UP IF [facility] CAN'T ACCEPT.
--- NOTE | 2020-01-25 14:51 | NUR ---
VAT CONSULTED FOR PICC FOR JAIL IV ABX. WENT WITH KISHOR GALINDO TO THE ROOM TO DISCUSS PLACEMENT AND PT BECAME TEARFUL AND AGGITATED. PT MAY BE GOING TO [facility] FOR REHAB AND SHE WANTS TO WAIT FOR PICC PLACEMENT WHEN SHE GETS HER DC CONFIRMATION. RN AWARE WELL
--- NOTE | 2020-01-25 15:57 | NUR ---
FAXED REFERRAL TO [facility] RECEIVED CONFIRMATION AND LEFT MSG WITH DIEGO IN ADM AT FACILITY THAT IF PT NOT ACCEPTED FOR [facility] WOULD LIKE STAY AT THEIR FACILITY. DP TO FOLLOW.
--- NOTE | 2020-01-25 18:48 | NUR ---
PT A&OX4. IV INTACT IN L FA. AMBULATES WITH STAND BY ASSIST. PT DID REFUSE PICC LINE PLACEMENT TODAY. STATES NO NEED TO UPDATE FAMILY STATES SHE IS IN CONTACT WITH THEM.
[2020-01-25 18:57] VITALS: BP 114/58
--- NOTE | 2020-01-26 03:45 | NUR ---
RECIEVED CARE OF THIS PATIENT AT 1900. PATIENT ALERT AND ORIENTEDX4. UP WITH ASSIST OF ONE AND WALKER. C/O PAIN, MED GIVEN. IV IN LFA. SLEPT MOST OF NIGHT.
[2020-01-26 03:51] VITALS: BP 132/49
[2020-01-26 07:03] VITALS: BP 121/60
--- NOTE | 2020-01-26 10:40 | NUR ---
[facility] FOLLOWING FOR POSSIBLE ADMISSION. CLINICAL UPDATES HAD BEEN SENT TO [facility] FOR REVIEW FOR BACKUP YESTERDAY. CM SPOKE WITH PT AGAIN THIS AM. PT SAID SHE DID WELL WITH PT AND ROSA WITH PT INDICATED PT LIKELY WOULDN'T NEED TOO LONG TO BE ABLE TO REHAB TO THE COMMUNITY. PT INDICATED SHE IS GOING TO BE ABLE TO STAY WITH FRIENDS IN [place] AND [place] IN THEIR HOME OUT [place] UPON [place]HC[place]. PT INDICATED HE PREFERENCE WOULD BE TO REMAIN HERE AND GO TO [facility] IF POSSIBLE. CM AWAITING ESTIMATED DURATION OF IV ABX NEED FROM ID. THIS WILL DETERMINE POSSIBLE PLAN UPON DC. CM TO FOLLOW INDICATED WITH DC PLANNING.
[2020-01-26 15:30] VITALS: BP 114/54
--- NOTE | 2020-01-26 15:31 | NUR ---
ID INDICATED PT NEED 6WKS OF IV ABX VANC Q8. [facility] WAS NOTIFIED AND INDICATED THAT THEY WOULDN'T BE ABLE TO ACCEPT AT PT DOESN'T REQUIRE ACUTE REHAB FOR THAT LONG AND WOULDN'T BE ABLE TO KEEP PT FOR DURATION OF ABX TREATMENT. CM REACHED OUT TO [facility] AND THEY INDICATED THEY WEREN'T ABLE TO ACCEPT PT THEY ALREADY HAD A LOT OF [place] MEDIAID IN HOUSE AND A LIST OF MORE APPROPRIATE PTS. CM APPEALED TO THEM AGAIN AND THEY AGAIN DECLINED. CM CONTACTED LIASION AT [facility] AND HE STATED THEY WOULDN'T LOOK AT A [place] MEDICAID PENDING THEY DON'T HAVE A CONTRACT. CM SPOKE WITH [facility] AND ID AND IT WAS DECIDED THAT THEY WOULD BRING PT TOMORROW IF THERE WAS A SKILLED FACILITY WILLING TO ACCPET PT AFTER 5-7 DAYS OF ACUTE REAHB FOR PT TO GO TO TO FINISH OUT HER IV ABX. IF ONE ACCPETS THEY WANT TO ACUTE HOSP TO STATE THAT IS DC TO [facility] [place] THROUGH PT WILL BE BROUGHT BACK TO ACUTE HOSP FOR FINISH IV ABX. CM TO SPEAK WITH PT AND TRY TO ARRANGE FOR DC TOMORROW.
--- NOTE | 2020-01-26 18:16 | NUR ---
CONSULTED TO PLACE A PICC FOR INFORMATION ASSURANCE ANALYST IV ANTIBIOTICS. ORDER AND CONSENT NOTED. THE PROCEDURE WELL BENIFITS AND RISKS DISCUSSED WITH THE PATIENT AND SHE VERBALIZED UNDERSTANDING. THE RIGHT BASILIC WAS WIDLEY PATENT AND A #4F SINGLE LUMEN PICC WAS PLACED AFTER A BEDSIDE TIMEOUT WAS COMPLETE. LINE TRIMMED TO 38CM AND ADVANCED WITHOUT DIFFICULTY. 1ST XRAY SHOWN LINE FLIPPED UP INTO JUSGUAL.UNABLE TO USE NAVIGATION- ANOTHER ATTEMPT WAS MADE VIS OVER THE WIRE AND PICC WAS EXCHANGED AND FLIPED DOWNWARD. 2 ND XRAY SHOWING LINE TOO DEEP. LINE WITHDREW 7CM REQUESTED AND 3RD XRAY SHOWING LINE IN CORRECT POSITION. LINE RELEASED FOR USE
--- NOTE | 2020-01-26 19:01 | NUR ---
VSS-AFEBRILE. LUNGS CLEAR-ROOM AIR. CERVICAL NECK PAIN WELL CONTROLLED WITH ORAL PAIN MEDICATION. CALLS APPROPRIATELY FOR ANY NEEDED ASSISTANCE.
--- NOTE | 2020-01-26 19:05 | NUR ---
PICC LINE INSERTED TO RIGHT UPPER ARM FOR PRO;OMGED IV ANTIBIOTICS. FLUSHES AND DRAWS WELL
[2020-01-26 20:01] VITALS: BP 111/59
[2020-01-27 04:42] VITALS: BP 117/54
--- NOTE | 2020-01-27 05:01 | NUR ---
Assumed pt care at 1900. A/OX4,VSS. Up with assist of 1,RW/GB slow unsteady gait but reports much improvemt to ticket writer. Pt able to get her BLE in bed upon return from bathroom and very excited with progress. C/o pain behind the neck, medicated with Mantoloking with relief reported. Fall precautions in place, calls approp for help. Has a PICC on RUE patent, abt's administered w/o problems. Reesting at this time,will continue to monitor pt.
[2020-01-27 07:42] VITALS: BP 112/68
--- NOTE | 2020-01-27 10:49 | NUR ---
REFERRAL FAXED TO [facility] SHE RECEIVED REFERRAL AND WILL REVIEW. DP TO FOLLOW.
[2020-01-27] MEDS ORDERED: CYMBALTA30 MG PO (11:33)
[2020-01-27] MEDS ORDERED: REMERON 30 MG T30 M1 PO (11:33)
[2020-01-27] MEDS ORDERED: NEURONTIN 300300 M1 PO (11:33)
[2020-01-27] MEDS ORDERED: HYDROCODON-ACE1 EAC7 PO (11:33)
[2020-01-27] MEDS ORDERED: RIFAMPIN 300 M300 MG PO (11:33)
--- NOTE | 2020-01-27 11:53 | NUR ---
Assumed care of pt at 0700. Pt a&ox4. States she feels better this am and is encouraged by the progress she has made. Denies pain. Walked the halls with physical therapy. Possible d/c to rehab [facility] today. Call light within reach. Will continue to monitor.
--- NOTE | 2020-01-27 14:43 | NUR ---
CARD PUNCHER SPOKE WITH PATIENT THIS DATE. POTENITAL ADMISSION TO [facility]. PATIENT IN THERAPY SESSION SO REHAB NAMHURE WAS GIVEN TO PATIENT TO READ AT LATER TIME. PATIENT WAS TO ADMIT TO REHAB IF FIRM D/C PLAN FOR AFTER SHORT REHAB STAY COULD BE OBTAINED. BOTTLE FILLER STILL WORKING ON ARRANGEMENTS. THIS AFTERNOON LEARNED THAT NO ADMISSION EXPECTED THIS DATE OR THROUGH WEEKEND. WILL CONTINUE TO FOLLOW.
[2020-01-27 15:19] VITALS: BP 113/60
--- NOTE | 2020-01-27 15:39 | NUR ---
NEITHER [facility] OR [facility] IS ABLE TO ACCEPT PT FOR IV ABX AFTER 5-7 DAYS OF ACUTE REHAB ON [facility]. CM NOTIFIED [facility] LIAISON AND CM BRICK BURNER. CM NOTIFID PT AND SHE IS AWARE THAT SHE WILL REMAIN HERE THROUGH THE WEEKEND AND THAT CM WILL FOLLOW UP ON THURSDAY. CM TO FOLLOW INDICATED WITH DC PLANNING.
--- NOTE | 2020-01-27 16:56 | NUR ---
FAXED REFERRAL TO [facility] SPOKE WITH BRANDY IN ADM SHE WILL REVIEW TO SEE IF PT CAN ADMIT TO ONE OF THEIR FACILITIES IN [place]. DP TO FOLLOW.
[2020-01-27 19:25] VITALS: BP 112/60
[2020-01-28 04:00] VITALS: BP 119/69
--- NOTE | 2020-01-28 04:50 | NUR ---
RECIEVED CARE OF THIS PATIENT AT 1900. PATIENT ALERT AND ORIENTED X4. UP TO BATHROOM WITH SBA. PICC IN [place]. C/O PAIN, MED GIVEN. SLEPT MOST OF NIGHT.
[2020-01-28 08:49] VITALS: BP 114/61
--- NOTE | 2020-01-28 14:40 | NUR ---
Assumed care of pt at 0700. Pt a&ox4. Pain controlled with prn pain meds. Lidocaine patch and fentanyl patch applied. No contact listed to contact for patient update. IV antibiotics infusing. Call light within reach. Will continue to monitor.
[2020-01-28 17:57] VITALS: BP 99/57
[2020-01-28 19:30] VITALS: BP 120/57
[2020-01-29 02:20] VITALS: BP 128/66
--- NOTE | 2020-01-29 04:31 | NUR ---
PT AMBULATING TO BATHROOM WITH ASSIST X1 WITH WALKER AND GAIT BELT AND IS TOLERATING FAIR. FENTANYL PATCH AND LIDOCAINE PATCH PROVIDING PAIN RELIEF. RESTING COMFORTABLY. FREQUENT OBSERVATION.
[2020-01-29 08:54] VITALS: BP 127/50
--- NOTE | 2020-01-29 15:29 | NUR ---
PT ASSESSED AT START OF SHIFT. PT UP IN THE ARMCHAIR AND DENIED PAIN W/ FENTANYL PATCH. EATING AND DRINKING WELL. TALKED W/ AND PLANS FOR PT TO HAVE IV ANTIBIOTICS FOR 6 WKS ON DISCHARGE. ARRANGEMENTS TO BE MADE W/ CASE MGMT.
[2020-01-29 16:23] VITALS: BP 116/62
[2020-01-29 18:59] VITALS: BP 126/41
[2020-01-30 03:34] VITALS: BP 113/67
[2020-01-30 06:25] LABS: ABSOLUTE NEUTROPHILS 3.3 thou/uL (1.4-8.2); BASOPHILS 1.9 % (0.0-2.0); EOSINOPHILS 1.6 % (0.0-3.0); HEMATOCRIT 34.6 % (42.0-52.0); HEMOGLOBIN 11.9 gm/dL (14.0-18.0); MCH 31.3 pg (26.0-34.0); MCHC 34.5 g/dL (28.0-37.0); MCV 90.9 fL (80.0-100.0); MONOCYTES 6.4 % (1.0-8.0); PLATELET COUNT 366 thou/uL (150-400); POLYS 51.1 % (36.0-66.0); RBC 3.81 mil/uL (4.50-6.00); RDW 13.7 % (10.5-14.5); WBC 6.4 thou/uL (4.0-11.0)
[2020-01-30 06:37] LABS: ALBUMIN 2.5 g/dL (3.4-5.0); CALCIUM 8.7 mg/dL (8.5-10.1); CREATININE 0.9 mg/dL (0.7-1.3); POTASSIUM 3.7 mmol/L (3.5-5.1); TOTAL BILIRUBIN 0.3 mg/dL (<0.1-1.0); TOTAL PROTEIN 7.2 g/dL (6.4-8.2)
--- NOTE | 2020-01-30 07:32 | NUR ---
PT AMBULATING IN ROOM INDEPENDENTLY AND IS TOLERATING FAIR. DENIES PAIN. RESTING COMFORTABLY. NO NEEDS VOICED. CALL LIGHT WITHIN REACH. FREQUENT OBSERVATION.
[2020-01-30 07:59] VITALS: BP 108/65
[2020-01-30 16:00] VITALS: BP 122/73
[2020-01-30 16:42] VITALS: BP 122/60
--- NOTE | 2020-01-30 19:37 | NUR ---
ASSUMED CARE OF THE PATIENT AT 0715, PATIENT ALERT AND ORIENTED X 4. PATIENT PAIN BETTER WITH FENATNYL PATCH AND APPLIED LIDOCAINE PATCH TO LOW BACK. PATIENT HAD RIGHT UPPER ARM SINGLE LUMEN PICC LINE. GABBI WORKING WITH DR HALE IN REGARD TO DISCHARGE. PATIENT HAS ANXIETY ISSUES, SHE RECEIVED PRN LORAZEPAM, HYDROXYZINE AND PROPANOLOL THIS SHIFT, SHE SLEPT THIS AFTERNOON. WILL CONTINUE TO MONITOR.
[2020-01-30 20:05] VITALS: BP 118/56
--- NOTE | 2020-01-31 04:08 | NUR ---
RECIEVED CARE OF THIS PATIENT AT 1900. PATIENT ALERT AND ORIENTED X4. UP TO BATHROOM WITH SBA. HAS R SLUMEN PICC. FLUSHES AND DRAWS GREAT. HAS FENT PATCH ON AND HAD LIDOCAINE PATCH ON LOWER BACK, REMOVED BY PATIENT. C/O BREAK THROUGH PAIN, MED GIVEN WITH GOOD RELIEF. SLEPT OFF AND ON DURING NIGHT.
[2020-01-31 08:25] VITALS: BP 128/67
--- NOTE | 2020-01-31 10:27 | NUR ---
Followup: Improvement in nutrition status eating 100% of all meals consistently. No new wt to assess. Change nutrition status to low risk. Possible discharge soon.
--- NOTE | 2020-01-31 13:06 | NUR ---
INDUSTRIAL SPRAYPAINTER SPOKE WITH JESSICA NIX WHO INDICATED THAT PT COULD BE SWITCHED TO DAPTOMYCIN DAILY UPON DC AND THAT ARRANGEMENTS COULD BE MADE FOR PT TO COME TO OP INFUSION WHEN THEY ARE OPEN AND TO THE ER WHEN THEY AREN'T TO GET IV ABX DAILY. PT WOULDN'T DISCHARGE WITH A LINE WOULD NEED TO BE STUCK EACH TIME. AWAITING APPOVAL FROM BEHAVIORAL ANALYST AND ER WATER FILTERER HELPER. CM TO FOLLOW INDICATED WITH DC PLANNING.
--- NOTE | 2020-01-31 14:12 | NUR ---
Assumed care of pt at 0700. Pt a&ox4. Denies pain. Up SBA. PICC line in place. Pt awaiting transfer to [facility] when appropriate. Vanco trough critical in am. Provider aware. New orders noted. Call light within reach. Will continue to monitor.
[2020-01-31 16:34] VITALS: BP 141/66
[2020-01-31 19:10] VITALS: BP 116/56
--- NOTE | 2020-02-01 03:43 | NUR ---
ALERT AND ORIENTED X 4. PT IS PLEASANT AND COOPEARATIVE. WAS CONCERNED ABOUT ANXIETY MORE THAN ANYTHING AT HS. GIVEN PRN ANTI ANXIETY. REALLY DENIES PAIN. BACK LOOKS OKAY. AFEBRILE.BACK ON THE NEW VANC REGIMEN. HS BAG INFUSED.PT LOOKING FORWARD TO GOING TO REHAB TOMORROW. SHE REPORTS WANTING TO DO EVERYTHING TO GET WELL.WALKS STEADILY TO THE BATHROOM. WILL CONTINUE WITH POC TILL EOS.
[2020-02-01 04:41] VITALS: BP 113/60
[2020-02-01 07:33] VITALS: BP 114/46
[2020-02-01] MEDS ORDERED: PROPRANOLOL 1010 MG PO (13:30)
[2020-02-01] MEDS ORDERED: VISTARIL 25 MG25 M1 PO (13:30)
[2020-02-01] MEDS ORDERED: VANCOMYCIN1.25 GM/22 IV (13:30)
[2020-02-01] MEDS ORDERED: LIDOPATCH1 EACH TRANSDERM (13:30)
[2020-02-01] MEDS ORDERED: ZIPRASIDONE HCL20 M1 PO (13:30)
[2020-02-01] MEDS ORDERED: ACETAMINOPHEN325 M1 PO (13:30)
[2020-02-01] MEDS ORDERED: LORAZEPAM 1 MG T1 MG PO (13:30)
[2020-02-01] MEDS ORDERED: CATHFLO ACT2 MG/VIA1 INJECTION (13:30)
[2020-02-01] MEDS ORDERED: PANTOPRAZOLE SO40 M1 PO (13:30)
[2020-02-01] MEDS ORDERED: FLOMAX0.4 MG PO (13:30)
[2020-02-01] MEDS ORDERED: MILK OF MA2400 MG/11 PO (13:30)
[2020-02-01] MEDS ORDERED: FENTANYL1 EAC1 TRANSDERM (13:30)
--- NOTE | 2020-02-01 14:13 | NUR ---
PT IS TO DISCHARGE THIS DAY FROM ACUTE HOSPITAL. PT'S PICC LINE IS TO BE REMOVED AND CM TO SET UP [facility] TO TAKE PT TO [facility] [address] [place] [address] TO ROLL TENSION TESTER HER LAST PAYCHECK AND RETUN HER UNIFORM. [facility] WILL THEN RING PT BACK TO [facility] AND PT WILL ADMIT TO [facility] ACUTE INPATIENT REHAB WHERE PT WILL REVIEVE 5-7 DAYS RHAB AND THEN DO OP IV ABX AT ER/OP INFUSION WITH DAPTO DIALY. CM TO CHART ARRANGED TIME OR ROLL TENSION TESTER.
--- NOTE | 2020-02-01 16:44 | NUR ---
VSS-AFEBRILE. LUNGS CLEAR-ROOM AIR. DISCUSSED DC INSTRUCTIONS, VERBALIZED UNDERSTANDING. RIGHT UPPER ARM PICC LINE REMOVED PER ORDERS, TIP INTACT. BELONGINGS TRANSFERRED TO [facility]-ROOM 511. REPORT GIVEN TO LAWANDA GALINDO.
== END 2020-02-01 15:30 | DRG 853 ==
LOC: ER 07:12 → ICU 15:18 → EROBS 15:18 → 4S 15:18 → EROBS 16:49 → ICU 20:58 → 2N 01-17 16:34 → 4S 01-23 06:48
PROVIDERS: Emergency Medicine; Hospitalist; Internal Medicine; Internal Medicine Infectious Disease; Nurse Practitioner; Nurse Practitioner Family; Psychiatry & Neurology Neurology; Specialist; ADMIT Hospitalist
PROC: 009U00Z Drainage of Spinal Canal with Drainage Device, Open Approach (ICD-10-PCS; 2020-01-12)
PROC: 00JU0ZZ Inspection of Spinal Canal, Open Approach (ICD-10-PCS; 2020-01-12)
PROC: B24BZZ4 Ultrasonography of Heart with Aorta, Transesophageal (ICD-10-PCS; principal; 2020-01-20)
PROC: 02HV33Z Insertion of Infusion Device into Superior Vena Cava, Percutaneous Approach (ICD-10-PCS; 2020-01-26)
DX: A41.9 Sepsis, unspecified organism (principal); G06.2 Extradural and subdural abscess, unspecified; G06.1 Intraspinal abscess and granuloma; E43 Unspecified severe protein-calorie malnutrition; K68.12 Psoas muscle abscess; E87.1 Hypo-osmolality and hyponatremia; G95.9 Disease of spinal cord, unspecified; R45.851 Suicidal ideations; Z20.828 Contact with and (suspected) exposure to other viral communicable diseases; F12.90 Cannabis use, unspecified, uncomplicated; F19.10 Other psychoactive substance abuse, uncomplicated; F90.9 Attention-deficit hyperactivity disorder, unspecified type; F20.9 Schizophrenia, unspecified; F31.9 Bipolar disorder, unspecified; E87.8 Other disorders of electrolyte and fluid balance, not elsewhere classified; R65.20 Severe sepsis without septic shock; M48.061 Spinal stenosis, lumbar region without neurogenic claudication; B95.62 Methicillin resistant Staphylococcus aureus infection as the cause of diseases classified elsewhere; F39 Unspecified mood [affective] disorder; Z68.33 Body mass index [BMI] 33.0-33.9, adult; E86.0 Dehydration
CPT/HCPCS: 10078; 10081; 10102; 10797; 27000; 50010; 50101; 50402; 50455; 50503; 50515; 50838; 51609; 51687; 51779; 53210; 56525; 56528; 56532; 56805; 62110; 62900

== ENCOUNTER 2020-02-01 08:47 | Inpatient (IN) | payer OTHER ==
[~2020-02-01] VITALS: Ht 160 cm; Wt 90.3 kg
--- NOTE | ~2020-02-01 | H ---
[facility] [place] [address] HISTORY AND PHYSICAL Name: JOSE PRINCE Room #: 511-P ADM IN M.R.#: [id number] Admission: 02/01/20 Attend Phys: Ivan Monroe MD Discharge: Date of : 95 Report #: [id number] THIS REPORT FOR: cc: TIMMY - No family physician/PCP TIMMY - No family physician/PCP Ivan Monroe MD ~ CC: Ivan WARNER physician/PCP DATE OF SERVICE: 02/01/2020 HISTORY AND PHYSICAL/POST ADMISSION PHYSICIAN EVALUATION HISTORY OF PRESENT ILLNESS: The patient is a 24-year-old transgendered male to female with history of IV drug abuse, schizophrenia, bipolar disorder, ADHD, anxiety, and depression, who was originally admitted to [facility] on 01/12/2020. At that time, he had complaints of upper back pain, shoulder pain and was noted to be quite ill and septic shock. Imaging studies revealed evidence of epidural abscesses involving the cervical and thoracic spine. The patient was seen by Neurosurgery and taken for an emergent left surgical hemilaminectomy with evacuation of epidural abscess and placement of drain. Infectious Disease has been involved. He has been on IV antibiotics. Later blood culture revealed high-grade MRSA bacteremia with no vegetation on DEV. Psychiatry has been involved to assist with increased depression. The patient has now been admitted for acute in-hospital inpatient rehabilitation as the patient has had significant problems with functional mobility, gait stability, and functional independence. PAST MEDICAL HISTORY: As noted above, hypertension, bipolar disorder, schizophrenia, autism, and ADHD. HABITS: Alcohol use, occasional; nonsmoker; IV drug usage. MEDICATIONS: Please see the full medication listing. ALLERGIES: No known drug allergies. SOCIAL HISTORY: Premorbidly, had worked at [employer], but has since lost job. The patient had been living in an extended stay hotel. No family living in town. The patient has a truck that was in the shop and is to get fixed. The patient does have adult friends in the area. REVIEW OF SYSTEMS: No complaints were noted as far as chest pain, shortness of breath, or abdominal discomfort. PHYSICAL EXAMINATION: [facility] [address] [place] [place] [address] HISTORY AND PHYSICAL Name: JOSE PRINCE Room #: 511-P ADM IN M.R.#: [id number] Admission: 02/01/20 Attend Phys: Ivan Monroe MD Discharge: Date of : 95 Report #: [id number] GENERAL: A 24-year-old in no obvious distress. The patient was seen later yesterday. Alert, pleasant, and oriented. VITAL SIGNS: Temperature 98.7, pulse 92, respirations 20, blood pressure 123/51. HEENT: Appeared to be benign. Posterior neck incision is healing nicely. CHEST: Sounded clear to auscultation. CARDIOVASCULAR: Regular rate and rhythm. ABDOMEN: Bowel sounds positive, nontender. GENITOURINARY AND RECTAL: Deferred. EXTREMITIES: Functional range of motion of both upper extremities. Strength is a grade 4+/5. Lower extremities functional range of motion, strength appears to be a grade 4 to 4+/5. There might be a slight decrease in toe tap left more than right. There was no clonus. The patient did reasonably well with [id number] of both upper extremities. Functionally, the patient has been standby assistance for basic transfers and min assist, ambulating short distances. The patient has been pushing the IV pole. ASSESSMENT: 1. 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 2. Generalized weakness and deconditioning. 3. Epidural abscess, status post cervical laminectomy at C2-C3. 4. Polysubstance abuse. 5. Depression with history of schizophrenia, bipolar, and attention deficit hyperactivity disorder. 6. Transgender male to female. 7. Marginal home situation. PLAN: The patient has been admitted for acute in-hospital inpatient rehabilitation. From a post-admission physician evaluation perspective, there are no relevant changes since the preadmission screening. Please see the above review of prior and current medical and functional conditions and comorbidities. Please see the patient's previous and current functional status. As risk of complications, the patient has multiple medical comorbidities as noted above. Initial plan of care involves the interdisciplinary acute inpatient rehabilitation program, goals to maximize the patient's functional independence to hopefully return to the home setting. Prognosis is reasonably good with estimated length of stay probably at least 2 weeks. Potential barriers would include the patient's multiple medical comorbidities and decreased functional status. By: [id number] Ivan Monroe MD /nt
--- NOTE | ~2020-02-01 | PLAN ---
[facility] [place], [place] [address] REHAB UNIT PLAN OF CARE Name: JOSE PRINCE Room #: 511-P ADM IN M.R.#: [id number] Admission: 02/01/20 Attend Phys: Ivan Monroe MD Discharge: Date of : 89 Report #: [id number] THIS REPORT FOR: //name// CC: Ivan Monroe [facility] physician/PCP DATE OF SERVICE: 02/03/2020 PROGRESS NOTE AND OVERALL PLAN OF CARE SUBJECTIVE: The patient is seen back today in followup. The patient is in no distress. Overall, mood appears improved. Temperature 98.1, pulse 79, respirations 21, blood pressure 129/62. Working in therapies with transfer, standby assistance, gait up to 300 feet without a device. Continuing to work on higher level of balance skills. Contact guard for stairs. Lower body dressing is contact guard. ASSESSMENT: 1. 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 2. Generalized weakness and deconditioning. 3. Epidural abscess, status post cervical laminectomy C2-C3. 4. Polysubstance abuse. 5. Depression with history of schizophrenia, bipolar, and attention deficit hyperactivity disorder. 6. Transgender male to female. 7. Marginal home situation. PLAN: The overall plan of care is based on the preadmission screen, post-admission physician evaluation and information garnered from therapy assessments. 1. Estimated length of stay is probably 1-2 weeks pending progress. 2. Medical prognosis is reasonably good. 3. Anticipated interventions include the interdisciplinary acute inpatient rehabilitation program. 4. Anticipated functional outcomes would be for the patient to become modified independent with mobility and ADLs to be able to return back to the home setting. 5. Discharge destination is currently being further assessed. 6. Expected therapy by discipline includes PT and OT 1-1/2 hours per day each five days a week throughout the duration of the acute inpatient rehabilitation stay. By: [id number] Ivan Monroe MD /nt
[~2020-02-01 08:47] MED LIST: CYMBALTA30 MG PO; HYDROCODON-ACE1 EAC7 PO; NEURONTIN 300300 M1 PO; NOHOMEMEDICATIONS; REMERON 30 MG T30 M1 PO; RIFAMPIN 300 M300 MG PO
[2020-02-01] MEDS ORDERED: VANCOMYCIN1.25 GM/22 IV (13:30)
[2020-02-01] MEDS ORDERED: PANTOPRAZOLE SO40 M1 PO (13:30)
[2020-02-01] MEDS ORDERED: CATHFLO ACT2 MG/VIA1 INJECTION (13:30)
[2020-02-01] MEDS ORDERED: FLOMAX0.4 MG PO (13:30)
[2020-02-01] MEDS ORDERED: MILK OF MA2400 MG/11 PO (13:30)
[2020-02-01] MEDS ORDERED: ZIPRASIDONE HCL20 M1 PO (13:30)
[2020-02-01] MEDS ORDERED: ACETAMINOPHEN325 M1 PO (13:30)
[2020-02-01] MEDS ORDERED: FENTANYL1 EAC1 TRANSDERM (13:30)
[2020-02-01] MEDS ORDERED: PROPRANOLOL 1010 MG PO (13:30)
[2020-02-01] MEDS ORDERED: LORAZEPAM 1 MG T1 MG PO (13:30)
[2020-02-01] MEDS ORDERED: LIDOPATCH1 EACH TRANSDERM (13:30)
[2020-02-01] MEDS ORDERED: VISTARIL 25 MG25 M1 PO (13:30)
[2020-02-01 17:51] VITALS: BP 109/56
[2020-02-01 19:35] VITALS: BP 108/50
[2020-02-02 08:00] VITALS: BP 123/51
[2020-02-02 14:58] LABS: CALCIUM 8.6 mg/dL (8.5-10.1); CREATININE 0.8 mg/dL (0.7-1.3); MAGNESIUM 1.7 mg/dL (1.8-2.4); POTASSIUM 4.7 mmol/L (3.5-5.1)
[2020-02-02 20:00] VITALS: BP 129/62
[2020-02-02 20:36] LABS: HEMATOCRIT 32.2 % (42.0-52.0); HEMOGLOBIN 11.1 gm/dL (14.0-18.0); MCH 31.3 pg (26.0-34.0); MCHC 34.3 g/dL (28.0-37.0); MCV 91.2 fL (80.0-100.0); RBC 3.54 mil/uL (4.50-6.00); RDW 14.3 % (10.5-14.5); WBC 5.2 thou/uL (4.0-11.0)
[2020-02-03 09:00] VITALS: BP 121/84
[2020-02-03 19:24] VITALS: BP 111/46
[2020-02-04 08:30] VITALS: BP 124/58
[2020-02-04 20:13] VITALS: BP 121/67
[2020-02-05 08:12] VITALS: BP 117/68
[2020-02-05 19:15] VITALS: BP 110/54
[2020-02-06 08:20] VITALS: BP 118/58
[2020-02-06 08:53] VITALS: BP 118/58
[2020-02-06 20:28] VITALS: BP 107/54
[2020-02-07 07:18] LABS: ABSOLUTE NEUTROPHILS 1.9 thou/uL (1.4-8.2); BASOPHILS 1.6 % (0.0-2.0); EOSINOPHILS 2.5 % (0.0-3.0); HEMATOCRIT 32.4 % (42.0-52.0); MCH 31.1 pg (26.0-34.0); MCHC 34.1 g/dL (28.0-37.0); MCV 91.3 fL (80.0-100.0); MONOCYTES 11.8 % (1.0-8.0); PLATELET COUNT 250 thou/uL (150-400); POLYS 45.1 % (36.0-66.0); RBC 3.55 mil/uL (4.50-6.00); RDW 14.8 % (10.5-14.5); WBC 4.3 thou/uL (4.0-11.0)
[2020-02-07 07:37] LABS: ALBUMIN 2.5 g/dL (3.4-5.0); ANION GAP 5 mmol/L (7-16); BUN 20 mg/dL (7-18); CALCIUM 8.4 mg/dL (8.5-10.1); CHLORIDE 105 mmol/L (98-107); CO2 31 mmol/L (21-32); CREATININE 0.9 mg/dL (0.7-1.3); GLUCOSE 88 mg/dL (74-106); POTASSIUM 4.3 mmol/L (3.5-5.1); SGOT 12 U/L (15-37); SGPT 15 U/L (30-65); SODIUM 141 mmol/L (136-145); TOTAL BILIRUBIN < 0.1 mg/dL (<0.1-1.0); TOTAL PROTEIN 6.2 g/dL (6.4-8.2)
[2020-02-07 08:12] VITALS: BP 123/67
[2020-02-07 19:15] VITALS: BP 120/44
[2020-02-08 08:20] VITALS: BP 127/67
[2020-02-08] MEDS ORDERED: PANTOPRAZOLE SO40 M1 PO (13:20)
[2020-02-08] MEDS ORDERED: ZIPRASIDONE HCL20 M1 PO (13:20)
[2020-02-08] MEDS ORDERED: CYMBALTA30 MG PO (13:20)
[2020-02-08] MEDS ORDERED: ACETAMINOPHEN325 M1 PO (13:20)
[2020-02-08] MEDS ORDERED: NEURONTIN 300M300 M2 PO (13:20)
[2020-02-08] MEDS ORDERED: REMERON 30 MG T30 M1 PO (13:20)
[2020-02-08] MEDS ORDERED: RIFAMPIN 300 M300 MG PO (13:20)
[2020-02-08] MEDS ORDERED: COLACE100 MG PO (13:20)
[2020-02-08] MEDS ORDERED: FLOMAX0.4 MG PO (13:20)
[2020-02-08] MEDS ORDERED: VOLTAREN GEL 1100 G2 TOP (13:20)
[2020-02-08 20:00] VITALS: BP 130/78
[2020-02-09 08:00] VITALS: BP 138/62
[2020-02-09] MEDS ORDERED: NEURONTIN 300M300 M2 PO (09:59)
[2020-02-09] MEDS ORDERED: CYMBALTA30 MG PO (09:59)
[2020-02-09] MEDS ORDERED: REMERON 30 MG T30 M1 PO (09:59)
[2020-02-09] MEDS ORDERED: VISTARIL 25 MG25 M1 PO (09:59)
[2020-02-09] MEDS ORDERED: ZIPRASIDONE HCL20 M1 PO (09:59)
[2020-02-09 11:19] VITALS: BP 138/62
== END 2020-02-09 13:43 | disposition home or self-care (01) | DRG 91 ==
PROVIDERS: Nurse Practitioner Family; Specialist; ADMIT Physical Medicine & Rehabilitation
DX: G99.2 Myelopathy in diseases classified elsewhere (principal); G06.2 Extradural and subdural abscess, unspecified; I33.0 Acute and subacute infective endocarditis; K68.12 Psoas muscle abscess; E44.0 Moderate protein-calorie malnutrition; G95.9 Disease of spinal cord, unspecified; R53.81 Other malaise; F19.10 Other psychoactive substance abuse, uncomplicated; F32.9 Major depressive disorder, single episode, unspecified; F20.9 Schizophrenia, unspecified; F90.9 Attention-deficit hyperactivity disorder, unspecified type; F41.9 Anxiety disorder, unspecified; B95.62 Methicillin resistant Staphylococcus aureus infection as the cause of diseases classified elsewhere; F39 Unspecified mood [affective] disorder; G43.909 Migraine, unspecified, not intractable, without status migrainosus; I10 Essential (primary) hypertension; Z68.33 Body mass index [BMI] 33.0-33.9, adult; Z79.899 Other long term (current) drug therapy
CPT/HCPCS: 10112

== ENCOUNTER → 2020-02-10 | Outpatient (CLI) | payer OTHER ==
[~2020-02-10] MED LIST changes: +ACETAMINOPHEN325 M1 PO; +CATHFLO ACT2 MG/VIA1 INJECTION; +COLACE100 MG PO; +FENTANYL1 EAC1 TRANSDERM; +FLOMAX0.4 MG PO; +LIDOPATCH1 EACH TRANSDERM; +LORAZEPAM 1 MG T1 MG PO; +MILK OF MA2400 MG/11 PO; +NEURONTIN 300M300 M2 PO; +PANTOPRAZOLE SO40 M1 PO; +PROPRANOLOL 1010 MG PO; +VANCOMYCIN1.25 GM/22 IV; +VISTARIL 25 MG25 M1 PO; +VOLTAREN GEL 1100 G2 TOP; +ZIPRASIDONE HCL20 M1 PO
--- NOTE | 2020-02-10 14:36 | NUR ---
IN FOR DAPTOMYCIN INFUSION FOR EPIDURAL ABSCESSES/MRSA. IV TEAM HAD TO PLACE PERIPHERAL IV. PATIENT TO HAVE PERIPHERAL IV PLACED DAILY DUE TO RECENT HISTORY OF IV DRUG USE. ADMISSION HISTORY AND ASSESSMENT COMPLETED. TOLERATED INFUSION WITHOUT INCIDENT. INSTRUCTED TO RETURN TO ED FOR THE NEXT 3 DAYS, AND ALSO WEDNESDAYS FOR HER DAILY INFUSIONS AND THEN ON ., . AND THURSDAY COME IN INFUSION CLINIC. WRITTEN INSTRUCTIONS GIVEN. PATIENT VERY PLEASANT AND COOPERATIVE. DISMISSED IN STABLE CONDITION.
[2020-02-10 15:04] VITALS: BP 126/51
== END ==
LOC: OPONC 09:54
DX: A41.02 Sepsis due to Methicillin resistant Staphylococcus aureus (principal); G06.1 Intraspinal abscess and granuloma; G06.2 Extradural and subdural abscess, unspecified
CPT/HCPCS: 95000

== ENCOUNTER → 2020-02-12 | Outpatient (CLI) | payer OTHER | LOC: OPONC 07:49 | DX: G06.1 Intraspinal abscess and granuloma (principal); G95.9 Disease of spinal cord, unspecified | CPT/HCPCS: 95000 ==

== ENCOUNTER → 2020-02-13 | Outpatient (CLI) | payer OTHER | LOC: OPONC | DX: A41.02 Sepsis due to Methicillin resistant Staphylococcus aureus (principal); G06.1 Intraspinal abscess and granuloma; G06.2 Extradural and subdural abscess, unspecified | CPT/HCPCS: 95000 ==